=== PATIENT | female | born 1960 | race Caucasian/White ===

== ENCOUNTER 2023-12-06 07:56 | Day surgery (SDC) | payer OTHER ==
[2023-11-29 14:27] VITALS: BMI 23.6
[2023-12-06] MEDS ORDERED: BUPIVACAINE HCL/PF 0.25% (2.5MG/ML) 10 ML VIAL ONE (08:07)
[2023-12-06] MEDS ORDERED: BUPIVACAINE HCL/EPINEPHRINE/PF 30 ML VIAL IJ ONE (08:07)
[2023-12-06] MEDS ORDERED: ONDANSETRON 4 MG/2 ML VIAL IVPUSH PRN (08:58)
[2023-12-06] MEDS ORDERED: ACETAMINOPHEN 325 MG TABLET (FP) PO PRN (08:58)
[2023-12-06] MEDS ORDERED: LACTATED RINGERS SOLUTION 1,000 ML IV SCH (09:00)
[2023-12-06] MEDS ORDERED: MIDAZOLAM HCL 2 MG/2 ML SINGLE DOSE VIAL ONE (09:02)
[2023-12-06] MEDS ORDERED: PROPOFOL 20 ML ONE ×2 (09:09→09:37)
[2023-12-06] MEDS: BUPIVACAINE 0.25% /EPI 1:200,000 10 ML VIAL INF ONE (09:32)
[2023-12-06] MEDS ORDERED: FENTANYL CITRATE/PF 50 MCG/ML VIAL ONE (10:02)
[2023-12-06] MEDS ORDERED: oxyCODONE HCL 5 MG TABLET ONE (11:07)
[2023-12-06] MEDS: oxyCODONE HCL 5 MG TABLET PO PRN (11:08)
[2023-12-06 11:12] VITALS: RESP 18; TEMP 97.2
[2023-12-06 11:59] VITALS: BP 116/64; PULSE 58
== END 2023-12-06 11:50 | disposition home or self-care (01) ==
LOC: FASU 07:56
PROVIDERS: ATTEND Orthopaedic Surgery
PROC: 0SBC4ZZ Excision of Right Knee Joint, Percutaneous Endoscopic Approach (ICD-10-PCS; principal; 2023-12-06 09:30)
DX: S83.281A Other tear of lateral meniscus, current injury, right knee, initial encounter (principal); X58.XXXA Exposure to other specified factors, initial encounter; Y92.9 Unspecified place or not applicable; Y93.9 Activity, unspecified
CPT/HCPCS: 94760; C1713